=== PATIENT | female | born 1945 | race African-American/Black ===

== ENCOUNTER 2017-07-28 16:02 | Outpatient (CLI) | payer MEDICARE | END 2017-07-28 16:03 | disposition home or self-care (01) | LOC: BICULT 16:02 | PROVIDERS: ATTEND Internal Medicine | DX: N28.1 Cyst of kidney, acquired (principal) | CPT/HCPCS: 76770 ==

== ENCOUNTER 2017-09-21 16:02 | Emergency (ER) | payer MEDICARE, MEDICAID ==
[2017-09-21 16:23] LABS: #Lymphocytes 1.2 thou/uL (1.20-3.40); #Monocytes 0.5 thou/uL (0.11-0.59); #Neutrophils 1.9 thou/uL (1.40-6.50); %Basophils 1.3 % (0.0-1.0); %Eosinophils 0.6 % (0.0-10.0); %Lymphocytes 33.4 % (21.0-51.0); %Monocytes 12.8 % (0.0-10.0); %Neutrophils 51.9 % (42.0-75.0); Hemoglobin 14.1 g/dL (12.0-16.0); Mean Corpuscular HGB CONC 33.3 g/dL (32.0-36.0); Mean Corpuscular Hemoglobin 29.3 pg (27.0-31.0); Mean Corpuscular Volume 88.2 fl (81.0-99.0); Platelet Count 220 thou/uL (130-400); RBC Distribution Width 12.1 % (11.5-14.5); Red Blood Cell (RBC) Count 4.82 mill/uL (4.20-5.40); White Blood Cell (WBC) Count 3.7 thou/uL (4.8-10.8)
[2017-09-21 16:44] LABS: ALT (SGPT) 20 U/L (8-55); AST (SGOT) 22 U/L (5-34); Albumin 3.8 g/dL (3.4-4.8); Alkaline Phosphatase 114 U/L (40-150); Anion Gap 13 mmol/L (10-20); BUN (Urea Nitrogen) 19 mg/dL (9.8-20.1); Bilirubin, Total 0.4 mg/dL (0.2-1.2); Calc. Creatinine Clearance 0 mL/min (70-130); Calcium 10.2 mg/dL (7.8-10.44); Carbon Dioxide 24 mmol/L (23-31); Chloride 106 mmol/L (98-107); Estimated GFR-MDRD 70; Globulin 3.3 g/dL (2.4-3.5); Glucose 75 mg/dL (83-110); Protein, Total 7.1 g/dL (6.0-8.3); Sodium 139 mmol/L (136-145)
--- NOTE | 2017-09-21 17:00 | RAD ---
SINGLE VIEW OF THE CHEST: 09/21/17 COMPARISON: 09/06/16 HISTORY: Back pain since yesterday. FINDINGS: Single view of the chest shows a normal sized cardiomediastinal silhouette. There are multiple small calcified granulomas scattered throughout the lungs. There is no evidence of consolidation or pleural effusion. The bones are unremarkable. IMPRESSION: No evidence of acute cardiopulmonary disease. POS: [facility]
[2017-09-21 17:30] LABS: INR-International Normal Ratio 2.5; PTT 36.8 SEC (22.9-36.1); Prothrombin Time 27.7 SEC (12.0-14.7)
[2017-09-21 17:42] LABS: CKMB 1.4 ng/mL (0-6.6); Troponin I Less than 0.010 ng/mL (< 0.028)
[2017-09-21 17:47] LABS: Bilirubin Negative (Negative); Blood, Urine Negative (Negative); Clarity CLEAR (Clear); Glucose, Urine (Dipstick) Negative (Negative); Leukocyte Moderate (Negative); Nitrite Negative (Negative); Protein, Urine (Dipstick) Negative (Neg-Trace); Specific Gravity, Urine 1.028 (1.002-1.036)
[2017-09-21 17:49] LABS: Bacteria/HPF None Seen HPF (None Seen); Hyaline Casts/LPF 0-3 HYALINE CAST LPF (0-3 Hyaline); Pathc Cast-AUWi Flag 0.29 (0-2.49); RBC/HPF 0-3 HPF (0-3); Squamous Epithelial 0-3 HPF (0-3)
[2017-09-21] MEDS ORDERED: cefTRIAXone\\ROCEPHIN 2 GM VIAL ONE (18:09)
== END 2017-09-21 18:50 | disposition home or self-care (01) ==
LOC: ERS 16:02
DX: N12 Tubulo-interstitial nephritis, not specified as acute or chronic (principal); E78.5 Hyperlipidemia, unspecified; I10 Essential (primary) hypertension; F41.9 Anxiety disorder, unspecified; F32.9 Major depressive disorder, single episode, unspecified; Z86.711 Personal history of pulmonary embolism; Z79.899 Other long term (current) drug therapy; Z79.891 Long term (current) use of opiate analgesic
CPT/HCPCS: 71045; 80053; 81003; 81015; 82553; 83880; 84484; 85025; 85610; 85730; 87086; 93005; 96365; 96375; J0696; J2270

== ENCOUNTER 2017-09-25 13:33 | Outpatient (CLI) | payer MEDICARE | END 2017-09-25 13:34 | disposition home or self-care (01) | LOC: BICMAMMO 13:33 | PROVIDERS: ATTEND Internal Medicine | DX: Z12.31 Encounter for screening mammogram for malignant neoplasm of breast (principal) | CPT/HCPCS: 77063; 77067 ==

== ENCOUNTER 2018-02-07 07:47 | Emergency (ER) | payer MEDICARE, MEDICAID ==
[2018-02-07] MEDS ORDERED: traMADol HCl 50 MG TAB ONE (08:23)
--- NOTE | 2018-02-07 09:02 | RAD ---
THREE VIEWS RIGHT SHOULDER: Comparison: None. History: Right shoulder and arm pain. FINDINGS: Three views of the right shoulder shows no evidence of acute fracture or dislocation. No significant degenerative changes are seen. The visualized right thorax is unremarkable. IMPRESSION: Unremarkable exam. POS: [facility]
--- NOTE | 2018-02-10 23:07 | EKG ---
Test Reason : Blood Pressure : / mmHG Vent. Rate : 071 BPM Atrial Rate : 071 BPM P-R Int : 162 ms QRS Dur : 134 ms QT Int : 474 ms P-R-T Axes : 046 -65 002 degrees QTc Int : 515 ms Normal sinus rhythm Possible Left atrial enlargement Right bundle branch block Left anterior fascicular block Bifascicular block Abnormal ECG Confirmed by TEJ ANNE ([id number]), image editor BEBETO MYERS ([id number]) on 02/10/2018 11:07:14 PM Referred By: Confirmed By:TEJ ANNE
== END 2018-02-07 08:57 | disposition home or self-care (01) ==
LOC: ERS 07:47
DX: M75.51 Bursitis of right shoulder (principal); I10 Essential (primary) hypertension; K21.9 Gastro-esophageal reflux disease without esophagitis; E78.5 Hyperlipidemia, unspecified; M06.9 Rheumatoid arthritis, unspecified; F32.9 Major depressive disorder, single episode, unspecified; F41.9 Anxiety disorder, unspecified; Z87.891 Personal history of nicotine dependence; Z86.711 Personal history of pulmonary embolism; Z79.899 Other long term (current) drug therapy; Z79.01 Long term (current) use of anticoagulants
CPT/HCPCS: 93005

== ENCOUNTER 2018-07-19 17:44 | Emergency (ER) | payer MEDICARE, MEDICAID ==
--- NOTE | 2018-07-19 19:36 | RAD ---
LEFT ANKLE THREE VIEWS: 07/19/18 HISTORY: Injury left ankle pain. FINDINGS/IMPRESSION: There is a mildly displaced oblique fracture involving the distal fibula with adjacent soft tissue sw elling. POS: [facility]
[2018-07-19] MEDS ORDERED: HYDROcodone/Acetaminophen 5/325 mg Tablet ONE (19:49)
[2018-07-19] MEDS ORDERED: Acetaminophen 500 MG TAB ONE (19:52)
== END 2018-07-19 20:34 | disposition home or self-care (01) ==
LOC: ERS 17:44
DX: S82.832A Other fracture of upper and lower end of left fibula, initial encounter for closed fracture (principal); E78.5 Hyperlipidemia, unspecified; F32.9 Major depressive disorder, single episode, unspecified; I10 Essential (primary) hypertension; K21.9 Gastro-esophageal reflux disease without esophagitis; M06.9 Rheumatoid arthritis, unspecified; Z87.891 Personal history of nicotine dependence; Z86.711 Personal history of pulmonary embolism; W01.0XXA Fall on same level from slipping, tripping and stumbling without subsequent striking against object, initial encounter

== ENCOUNTER 2018-09-27 09:16 | Outpatient (CLI) | payer MEDICARE, MEDICAID ==
--- NOTE | 2018-09-27 13:49 | MMO ---
Bilateral MAMMO Bilat Screen [facility]. CLINICAL HISTORY: Patient is 73 years old and is seen for screening. The patient has no family history of breast cancer. The patient has no personal history of cancer. VIEWS: The views performed were: bilateral craniocaudal with tomosynthesis and bilateral mediolateral oblique with tomosynthesis. FILMS COMPARED: The present examination has been compared to prior imaging studies performed at [facility] on 09/17/2014, 09/21/2015, 09/21/2016 and 09/25/2017. MAMMOGRAM FINDINGS: There are scattered fibroglandular densities. There are no suspicious masses, suspicious calcifications, or new areas of architectural distortion. IMPRESSION: THERE IS NO MAMMOGRAPHIC EVIDENCE OF MALIGNANCY. A ROUTINE FOLLOW-UP MAMMOGRAM IN 1 YEAR IS RECOMMENDED. THE RESULTS OF THIS EXAM WERE SENT TO THE PATIENT. ACR BI-RADS Category 1 - Negative MAMMOGRAPHY NOTE: 1. A negative mammogram report should not delay a biopsy if a dominant of clinically suspicious mass is present. 2. Approximately 10% to 15% of breast cancers are not detected by mammography. 3. Adenosis and dense breasts may obscure an underlying neoplasm.
== END 2018-09-27 09:17 | disposition home or self-care (01) ==
LOC: BICMAMMO 09:16
PROVIDERS: ATTEND Internal Medicine
DX: Z12.31 Encounter for screening mammogram for malignant neoplasm of breast (principal)
CPT/HCPCS: 77063; 77067

== ENCOUNTER 2018-10-05 09:29 | Outpatient (CLI) | payer MEDICARE, MEDICAID ==
--- NOTE | 2018-10-05 10:30 | BD ---
DEXA BONE DENSITY STUDY: Date: 10/05/18 HISTORY: 73-year-old postmenopausal female for screening for osteoporosis. COMPARISON: None. FINDINGS: Lumbar Spine: BMD (g/cm2) L1 0.945 T-Score: -0.4 L2 1.005 T-Score: -0.2 L3 1.080 T-Score: 0.0 L4 1.079 T-Score: 0.2 L1-L4 1.031 T-Score: -0.1 Femoral Neck: 0.700 T-Score: -1.3 Total Femur: 0.692 T-Score: -2.0 IMPRESSION: Osteopenia. This patient has a 10 year WHO fracture risk of a major osteoporotic fracture of 6.2% and a hip fracture of 1.1%. POS: [facility]
== END 2018-10-05 09:30 | disposition home or self-care (01) ==
LOC: BICMAMMO 09:29
PROVIDERS: ATTEND Internal Medicine
DX: Z13.820 Encounter for screening for osteoporosis (principal); Z78.0 Asymptomatic menopausal state; M85.89 Other specified disorders of bone density and structure, multiple sites
CPT/HCPCS: 77080

== ENCOUNTER 2019-02-23 14:39 | Emergency (ER) | payer MEDICARE, MEDICAID | END 2019-02-23 15:09 | disposition home or self-care (01) | LOC: ERS 14:39 | DX: S16.1XXA Strain of muscle, fascia and tendon at neck level, initial encounter (principal); E78.5 Hyperlipidemia, unspecified; E78.00 Pure hypercholesterolemia, unspecified; I10 Essential (primary) hypertension; K21.9 Gastro-esophageal reflux disease without esophagitis; M06.9 Rheumatoid arthritis, unspecified; Z86.711 Personal history of pulmonary embolism; F32.9 Major depressive disorder, single episode, unspecified; Z87.891 Personal history of nicotine dependence; Z79.01 Long term (current) use of anticoagulants; Z79.899 Other long term (current) drug therapy; X50.9XXA Other and unspecified overexertion or strenuous movements or postures, initial encounter | CPT/HCPCS: 99283 ==

== ENCOUNTER 2019-04-22 08:06 | Outpatient (CLI) | payer MEDICARE, MEDICAID ==
--- NOTE | 2019-04-22 08:21 | RAD ---
2 view chest: [04/22/2019] Comparison:10/14/2014 HISTORY: Shortness of breath FINDINGS: Increased linear interstitial density noted with pulmonary hyperinflation. Findings suggest COPD in the proper clinical setting. No pneumothorax or pleural fluid. No focal consolidation or alveolar edema. Bilateral pulmonary parenchymal granulomata are again noted. Mild atherosclerotic gerald cification of the aortic arch. IMPRESSION: Interstitial prominence and pulmonary hyperinflation suggests COPD in the proper clinical setting. Evidence of prior granulomatous disease. No acute findings.
== END 2019-04-22 08:07 | disposition home or self-care (01) ==
LOC: BICRAD 08:06
PROVIDERS: ATTEND Internal Medicine
DX: I10 Essential (primary) hypertension (principal); J98.4 Other disorders of lung
CPT/HCPCS: 71046

== ENCOUNTER 2019-05-10 08:03 | Emergency (ER) | payer MEDICARE, MEDICAID ==
[2019-05-10 08:38] LABS: Hemoglobin 14.1 g/dL (12.0-16.0); Mean Corpuscular HGB CONC 32.2 g/dL (32.0-36.0); Mean Corpuscular Hemoglobin 28.1 pg (27.0-31.0); Mean Corpuscular Volume 87.2 fL (78.0-98.0); Platelet Count 208 thou/uL (130-400); RBC Distribution Width 14.9 % (11.5-14.5); Red Blood Cell (RBC) Count 5.03 mill/uL (4.20-5.40); White Blood Cell (WBC) Count 3.2 thou/uL (4.8-10.8)
[2019-05-10 08:54] LABS: INR-International Normal Ratio 2.6; PTT 38.4 SEC (22.9-36.1); Prothrombin Time 27.3 SEC (12.0-14.7)
[2019-05-10 08:56] LABS: ALT (SGPT) 11 U/L (8-55); AST (SGOT) 16 U/L (5-34); Albumin 3.5 g/dL (3.4-4.8); Alkaline Phosphatase 144 U/L (40-110); Anion Gap 7 mmol/L (10-20); BUN (Urea Nitrogen) 11 mg/dL (9.8-20.1); Bilirubin, Total 0.4 mg/dL (0.2-1.2); Calc. Creatinine Clearance 0 mL/min (70-130); Calcium 9.8 mg/dL (7.8-10.44); Carbon Dioxide 25 mmol/L (23-31); Chloride 110 mmol/L (98-107); Estimated GFR-MDRD 69; Glucose 147 mg/dL (83-110); Lipase 48 U/L (8-78); Potassium 3.4 mmol/L (3.5-5.1); Protein, Total 6.5 g/dL (6.0-8.3); Sodium 139 mmol/L (136-145)
[2019-05-10 09:07] LABS: MDiff Complete? YES; Platelet Morphology Comment Appears Adequate; RBC Morphology Normal
[2019-05-10 09:34] LABS: Bacteria/HPF None Seen HPF (None Seen); Bilirubin Negative (Negative); Blood, Urine Negative (Negative); Clarity Clear (Clear); Glucose, Urine (Dipstick) Normal (Negative); Leukocyte 250 Leu/uL (Negative); Nitrite Negative (Negative); Protein, Urine (Dipstick) Negative (Neg-Trace); RBC/HPF 0-3 HPF (0-3); Squamous Epithelial 0-3 HPF (0-3); Urobilinogen Normal mg/dL (Less than 2)
[2019-05-10 09:37] LABS: Band 1 % (5-11); Eosinophils 2 % (0-10); Lymphocytes 35 % (21-51); Monocytes 16 % (0-10); Neutrophil 46 % (42-75)
--- NOTE | 2019-05-10 11:30 | CT ---
CT ABDOMEN AND PELVIS PERFORMED WITH IV CONTRAST ENHANCEMENT: Date: 05/10/2019 HISTORY: Periumbilical pain. Diarrhea. FINDINGS: The lung bases are clear of any infiltrative process. The liver, spleen, and pancreas regions appear unremarkable. Gallbladder is not distended. Right and left adrenal glands are normal. Hypodensities involving the upper pole of the right kidney and lower pole of the left kidney appear to represent cysts. There is no significant periaortic or me senteric adenopathy. CT of pelvis was performed with contrast. The appendix is normal. Some minimal diverticulosis of the descending and sigmoid colon. No evidence for diverticulitis. IMPRESSION: 1. Bilateral renal cysts. 2. Colonic diverticulosis. 3. Normal appendix. POS: [facility]
[2019-05-10] MEDS ORDERED: Iopamidol-370 76% 500 ML 1 ML ONE (14:28)
== END 2019-05-10 12:27 | disposition home or self-care (01) ==
LOC: ERS 08:03
DX: N39.0 Urinary tract infection, site not specified (principal); R10.816 Epigastric abdominal tenderness; R19.7 Diarrhea, unspecified; E78.5 Hyperlipidemia, unspecified; E78.00 Pure hypercholesterolemia, unspecified; I10 Essential (primary) hypertension; K21.9 Gastro-esophageal reflux disease without esophagitis; M06.9 Rheumatoid arthritis, unspecified; F32.9 Major depressive disorder, single episode, unspecified; F41.9 Anxiety disorder, unspecified; Z87.891 Personal history of nicotine dependence; Z86.711 Personal history of pulmonary embolism; Z79.899 Other long term (current) drug therapy; Z79.01 Long term (current) use of anticoagulants
CPT/HCPCS: 36415; 74177; 80053; 81003; 81015; 83690; 85025; 85610; 85730; 86850; 86900; 86901; 87086; 93005; Q9967

== ENCOUNTER 2019-09-30 07:55 | Outpatient (CLI) | payer MEDICARE, MEDICAID ==
--- NOTE | 2019-09-30 08:22 | MMO ---
Bilateral MAMMO Bilat Screen [facility]. CLINICAL HISTORY: Patient is 74 years old and is seen for screening. The patient has no family history of breast cancer. The patient has no personal history of cancer. VIEWS: The views performed were: bilateral craniocaudal with tomosynthesis; bilateral mediolateral oblique with tomosynthesis; and bilateral exaggerated craniocaudal. FILMS COMPARED: The present examination has been compared to prior imaging studies performed at [facility] on 09/21/2015, 09/21/2016, 09/25/2017 and 09/27/2018. This study has been interpreted with the assistance of computer-aided detection. MAMMOGRAM FINDINGS: There are scattered fibroglandular densities. There are no suspicious masses, suspicious calcifications, or new areas of architectural distortion. IMPRESSION: THERE IS NO MAMMOGRAPHIC EVIDENCE OF MALIGNANCY. A ROUTINE FOLLOW-UP MAMMOGRAM IN 1 YEAR IS RECOMMENDED. THE RESULTS OF THIS EXAM WERE SENT TO THE PATIENT. ACR BI-RADS Category 1 - Negative MAMMOGRAPHY NOTE: 1. A negative mammogram report should not delay a biopsy if a dominant of clinically suspicious mass is present. 2. Approximately 10% to 15% of breast cancers are not detected by mammography. 3. Adenosis and dense breasts may obscure an underlying neoplasm. Reported by: SHANITA ZAVALA MD Electonically Signed: [id number]
== END 2019-09-30 07:56 | disposition home or self-care (01) ==
LOC: BICMAMMO 07:55
PROVIDERS: ATTEND Internal Medicine
DX: Z12.31 Encounter for screening mammogram for malignant neoplasm of breast (principal)
CPT/HCPCS: 77063; 77067

== ENCOUNTER 2020-04-10 08:31 | Emergency (ER) | payer MEDICARE, MEDICAID ==
--- NOTE | 2020-04-10 09:11 | RAD ---
Exam: Right hip 2 views: HISTORY: Right hip pain, history of rheumatoid arthritis COMPARISON: None FINDINGS: Bony demineralization. Mild right hip joint space loss without significant hypertrophic osteophytosis . No evidence for fracture, dislocation, or other significant acute osseous abnormality. IMPRESSION: Mild nonspecific right hip joint space loss.
[2020-04-10] MEDS ORDERED: Ibuprofen 800 MG TAB ONE (09:49)
== END 2020-04-10 09:55 | disposition home or self-care (01) ==
LOC: ERS 08:31
DX: M25.551 Pain in right hip (principal); M06.9 Rheumatoid arthritis, unspecified; E78.5 Hyperlipidemia, unspecified; E78.00 Pure hypercholesterolemia, unspecified; I10 Essential (primary) hypertension; K21.9 Gastro-esophageal reflux disease without esophagitis; Z79.01 Long term (current) use of anticoagulants

== ENCOUNTER 2020-04-23 14:11 | Outpatient (CLI) | payer MEDICARE, MEDICAID ==
--- NOTE | 2020-04-23 15:13 | ULT ---
Exam: Bilateral renal ultrasound HISTORY: Renal cyst COMPARISON: 05/16/2016 Correlation: Abdomen and pelvic CT 05/09/2019 FINDINGS: Right kidney: Normal cortical echotexture. No hydronephrosis. Redemonstration of exophytic cyst emana ting from the upper pole of the left kidney, measuring 3.0 x 2.7 x 2.7 cm Right kidney measurements: 9.5 x 4.9 x 5.1 cm. Left kidney: Normal cortical echotexture. No hydronephrosis. Isoechoic focus in the lower pole left k idney measures 1.6 x 1.6 x 1.2 cm Left kidney measurements 9.4 x 4.6 x 4.8 cm. Urinary bladder: Inadequate distention. Limited evaluation. IMPRESSION: 1. Left and right renal cysts, better demonstrated on a abdomen pelvis CT from 05/10/2019.
== END 2020-04-23 14:12 | disposition home or self-care (01) ==
LOC: BICULT 14:11
PROVIDERS: ATTEND Internal Medicine
DX: N28.1 Cyst of kidney, acquired (principal)
CPT/HCPCS: 76770

== ENCOUNTER 2020-06-10 08:29 | Outpatient (CLI) | payer MEDICARE, MEDICAID ==
--- NOTE | 2020-06-10 09:39 | CT ---
CT OF THE ABDOMEN WITH AND WITHOUT IV CONTRAST INDICATION: Renal cysts COMPARISON: CT the abdomen and pelvis dated May 10, 2019 FINDINGS: ABDOMEN: Lung bases: There are calcified granuloma in the right and left lower lobe Liver: There is calcified granuloma in the right hepatic lobe. Gallbladder: Normal appearing. Pancreas: Normal. Adrenal glands: Normal. Spleen: Calcified granuloma the spleen Kidneys and ureters: There is a stable 3.2 cm cyst involving the superior pole of the right kidney. T here is a stable 1.4 cm cyst involving inferior pole of the left kidney. No suspicious solid renal lesion is evident. No hydronephrosis is demonstrated. Bowel:Normal appearing. Vasculature: There are moderate vascular calcifications seen involving the visualized vasculature. Lymph nodes:No lymphadenopathy. Free fluid in abdomen:No free fluid is evident. Osseous structures: No acute osseous abnormality. No destructive osteolytic or osteoblastic lesion i s identified. There is scattered degenerative and osteoarthritic changes. There is stable grade 1 anterolisthesis of L4 and L5. Soft tissues:Normal. IMPRESSION: 1. Stable bilateral renal cysts. 2. Findings of prior granulomatous disease.
[2020-06-10] MEDS ORDERED: Iopamidol-370 76% 500 ML 1 ML ONE (13:46)
== END 2020-06-10 08:30 | disposition home or self-care (01) ==
LOC: BICCT 08:29
PROVIDERS: ATTEND Urology
DX: N28.1 Cyst of kidney, acquired (principal)
CPT/HCPCS: 74170; 82565; Q9967

== ENCOUNTER 2020-08-01 10:52 | Emergency (ER) | payer MEDICARE, MEDICAID ==
[2020-08-01] MEDS ORDERED: HYDROcodone/Acetaminophen 10/325 mg Tablet ONE ×2 (11:12→11:17)
== END 2020-08-01 11:44 | disposition home or self-care (01) ==
LOC: ERS 10:52
DX: H60.92 Unspecified otitis externa, left ear (principal); H66.92 Otitis media, unspecified, left ear; E78.5 Hyperlipidemia, unspecified; E78.00 Pure hypercholesterolemia, unspecified; I10 Essential (primary) hypertension; K21.9 Gastro-esophageal reflux disease without esophagitis; M06.9 Rheumatoid arthritis, unspecified; Z87.891 Personal history of nicotine dependence
CPT/HCPCS: 99283

== ENCOUNTER 2020-10-01 08:33 | Outpatient (CLI) | payer MEDICARE, MEDICAID | END 2020-10-01 08:34 | disposition home or self-care (01) | LOC: BICMAMMO 08:33 | PROVIDERS: ATTEND Internal Medicine | DX: Z12.31 Encounter for screening mammogram for malignant neoplasm of breast (principal) | CPT/HCPCS: 77063; 77067 ==

== ENCOUNTER 2021-02-06 10:47 | Emergency (ER) | payer MEDICARE, MEDICAID ==
[2021-02-06 18:57] LABS: SARS-CoV-2 PCR by NAA Not Detected (NotDetected)
== END 2021-02-06 11:50 | disposition home or self-care (01) ==
LOC: ERS 10:47
DX: J02.9 Acute pharyngitis, unspecified (principal); I10 Essential (primary) hypertension; K21.9 Gastro-esophageal reflux disease without esophagitis; Z20.822 Contact with and (suspected) exposure to COVID-19; E78.00 Pure hypercholesterolemia, unspecified; Z86.711 Personal history of pulmonary embolism; Z87.891 Personal history of nicotine dependence; Z79.899 Other long term (current) drug therapy
CPT/HCPCS: 87081; 87430; U0003; U0005; 99283

== ENCOUNTER 2021-02-27 06:46 | Emergency (ER) | payer MEDICARE, MEDICAID ==
[2021-02-27 07:32] LABS: #Lymphocytes 1.4 thou/uL (1.20-3.40); #Monocytes 0.5 thou/uL (0.11-0.59); #Neutrophils 2.1 thou/uL (1.40-6.50); %Basophils 0.8 % (0.0-1.0); %Eosinophils 0.7 % (0.0-10.0); %Lymphocytes 34.8 % (21.0-51.0); %Monocytes 12.2 % (0.0-10.0); %Neutrophils 51.5 % (42.0-75.0); Mean Corpuscular HGB CONC 33.3 g/dL (32.0-36.0); Mean Corpuscular Hemoglobin 27.5 pg (27.0-31.0); Mean Corpuscular Volume 82.7 fL (78.0-98.0); Mean Platelet Volume 8.2 fL (7.4-10.4); Platelet Count 245 thou/uL (130-400); Red Blood Cell (RBC) Count 4.72 mill/uL (4.20-5.40); White Blood Cell (WBC) Count 4.1 thou/uL (4.8-10.8)
[2021-02-27 07:43] LABS: INR-International Normal Ratio 1.5; Prothrombin Time 17.9 sec (12.0-14.7)
[2021-02-27 07:45] LABS: PTT 30.4 sec (22.9-36.1)
[2021-02-27 07:56] LABS: Bilirubin Negative (Negative); Blood, Urine Negative (Negative); Clarity Clear (Clear); Glucose, Urine (Dipstick) Normal (Negative); Ketone, Urine Negative (Negative); Leukocyte Negative Leu/uL (Negative); Nitrite Negative (Negative); Protein, Urine (Dipstick) Negative (Neg-Trace); Urobilinogen Normal mg/dL (Less than 2)
[2021-02-27 09:10] LABS: ALT (SGPT) 12 U/L (8-55); AST (SGOT) 18 U/L (5-34); Albumin 3.4 g/dL (3.4-4.8); Alkaline Phosphatase 83 U/L (40-110); Anion Gap 11 mmol/L (10-20); BUN (Urea Nitrogen) 17 mg/dL (9.8-20.1); Bilirubin, Total 0.4 mg/dL (0.2-1.2); Calc. Creatinine Clearance 0 mL/min (70-130); Calcium 10.6 mg/dL (7.8-10.44); Carbon Dioxide 23 mmol/L (23-31); Chloride 109 mmol/L (98-107); Globulin 4.1 g/dL (2.4-3.5); Glucose 86 mg/dL (83-110); Lipase 42 U/L (8-78); Potassium 3.9 mmol/L (3.5-5.1); Protein, Total 7.5 g/dL (5.8-8.1); Sodium 139 mmol/L (136-145)
[2021-02-27] MEDS ORDERED: Iopamidol-370 76% 500 ML 1 ML ONE (13:02)
== END 2021-02-27 09:55 | disposition home or self-care (01) ==
LOC: ERS 06:46
DX: R10.33 Periumbilical pain (principal); R19.5 Other fecal abnormalities; Z51.81 Encounter for therapeutic drug level monitoring; I10 Essential (primary) hypertension; Z87.891 Personal history of nicotine dependence
CPT/HCPCS: 36415; 74177; 80053; 81003; 83690; 84484; 85025; 85610; 85730; 93005; Q9967

== ENCOUNTER 2021-03-22 07:28 | Outpatient (CLI) | payer MEDICARE, MEDICAID | END 2021-03-22 07:29 | disposition home or self-care (01) | LOC: CT 07:28 | PROVIDERS: ATTEND Physician Assistant Medical | DX: R10.13 Epigastric pain (principal); R93.3 Abnormal findings on diagnostic imaging of other parts of digestive tract | CPT/HCPCS: 74177 ==

== ENCOUNTER 2021-04-15 10:18 | Emergency (ER) | payer MEDICARE, MEDICAID ==
[2021-04-15 11:04] LABS: #Eosinphils 0.1 thou/uL (0.0-0.7); #Lymphocytes 1.4 thou/uL (1.20-3.40); #Monocytes 0.4 thou/uL (0.11-0.59); #Neutrophils 2.1 thou/uL (1.40-6.50); %Basophils 1.2 % (0.0-1.0); %Eosinophils 1.5 % (0.0-10.0); %Lymphocytes 34.9 % (21.0-51.0); %Monocytes 10.1 % (0.0-10.0); %Neutrophils 52.3 % (42.0-75.0); Hemoglobin 13.5 g/dL (12.0-16.0); Mean Corpuscular HGB CONC 32.8 g/dL (32.0-36.0); Mean Corpuscular Hemoglobin 27.3 pg (27.0-31.0); Mean Corpuscular Volume 83.4 fL (78.0-98.0); Mean Platelet Volume 8.2 fL (7.4-10.4); Platelet Count 236 thou/uL (130-400); RBC Distribution Width 14.4 % (11.5-14.5); Red Blood Cell (RBC) Count 4.95 mill/uL (4.20-5.40)
[2021-04-15 11:27] LABS: ALT (SGPT) 9 U/L (8-55); AST (SGOT) 17 U/L (5-34); Albumin 3.7 g/dL (3.4-4.8); Alkaline Phosphatase 97 U/L (40-110); Anion Gap 11 mmol/L (10-20); BUN (Urea Nitrogen) 23 mg/dL (9.8-20.1); Bilirubin, Total 0.5 mg/dL (0.2-1.2); Calc. Creatinine Clearance 0 mL/min (70-130); Calcium 10.6 mg/dL (7.8-10.44); Carbon Dioxide 23 mmol/L (23-31); Chloride 108 mmol/L (98-107); Globulin 3.8 g/dL (2.4-3.5); Glucose 89 mg/dL (83-110); Lipase 46 U/L (8-78); Potassium 3.9 mmol/L (3.5-5.1); Protein, Total 7.5 g/dL (5.8-8.1); Sodium 138 mmol/L (136-145)
[2021-04-15 12:10] LABS: Prothrombin Time 22.8 sec (12.0-14.7)
[2021-04-15] MEDS ORDERED: Nitroglycerin 2% Ointment 1 INCH/1 GM Packet ONE (12:14)
[2021-04-15] MEDS ORDERED: Ondansetron PF 4 MG/2 ML Vial IVP PRN (13:15)
[2021-04-15] MEDS ORDERED: Ondansetron ODT 4 MG TAB SL PRN (13:15)
[2021-04-15 14:10] LABS: SARS-CoV-2 NAA Rapid Test Not Detected (NotDetected)
[2021-04-15] MEDS ORDERED: Spironolactone 25 MG TAB PO SCH (15:30)
[2021-04-15 17:24] LABS: Troponin I 0.012 ng/mL (< 0.028)
== END 2021-04-15 17:40 | disposition home or self-care (01) ==
LOC: ERS 10:18
DX: R07.9 Chest pain, unspecified (principal); E78.5 Hyperlipidemia, unspecified; I10 Essential (primary) hypertension; K21.9 Gastro-esophageal reflux disease without esophagitis; Z86.711 Personal history of pulmonary embolism; Z87.891 Personal history of nicotine dependence; Z79.899 Other long term (current) drug therapy; Z20.822 Contact with and (suspected) exposure to COVID-19
CPT/HCPCS: 71045; 80053; 83690; 84484 ×2; 85025; 85610; 85730; 93005; 94760; 99285; U0002; 36415

== ENCOUNTER 2021-10-04 10:57 | Outpatient (CLI) | payer MEDICARE, MEDICAID | END 2021-10-04 10:58 | disposition home or self-care (01) | LOC: BICMAMMO 10:57 | PROVIDERS: ATTEND Internal Medicine | DX: Z12.31 Encounter for screening mammogram for malignant neoplasm of breast (principal) | CPT/HCPCS: 77063; 77067 ==

== ENCOUNTER 2021-10-30 13:08 | Emergency (ER) | payer MEDICARE, MEDICAID ==
[2021-10-30 13:31] LABS: #Basophils 0.1 thou/uL (0.0-0.2); #Monocytes 0.6 thou/uL (0.11-0.59); #Neutrophils 2.4 thou/uL (1.40-6.50); %Eosinophils 0.7 % (0.0-10.0); %Lymphocytes 39.3 % (21.0-51.0); %Monocytes 10.9 % (0.0-10.0); Hemoglobin 14.2 g/dL (12.0-16.0); Mean Corpuscular HGB CONC 32.6 g/dL (32.0-36.0); Mean Corpuscular Hemoglobin 28.1 pg (27.0-31.0); Mean Corpuscular Volume 86.1 fL (78.0-98.0); Mean Platelet Volume 8.9 fL (7.4-10.4); Platelet Count 203 thou/uL (130-400); RBC Distribution Width 13.1 % (11.5-14.5); Red Blood Cell (RBC) Count 5.04 mill/uL (4.20-5.40); White Blood Cell (WBC) Count 5.1 thou/uL (4.8-10.8)
[2021-10-30] MEDS ORDERED: Meclizine HCl 25 MG TAB ONE ×2 (13:57→13:59)
[2021-10-30 14:05] LABS: ALT (SGPT) 9 U/L (8-55); AST (SGOT) 16 U/L (5-34); Albumin 3.9 g/dL (3.4-4.8); Alkaline Phosphatase 98 U/L (40-110); Anion Gap 13 mmol/L (10-20); BUN (Urea Nitrogen) 21 mg/dL (9.8-20.1); Bilirubin, Total 0.5 mg/dL (0.2-1.2); Calc. Creatinine Clearance 0 mL/min (70-130); Calcium 11.1 mg/dL (7.8-10.44); Carbon Dioxide 25 mmol/L (23-31); Chloride 107 mmol/L (98-107); Estimated GFR 56; Globulin 3.6 g/dL (2.4-3.5); Glucose 73 mg/dL (83-110); Potassium 3.8 mmol/L (3.5-5.1); Protein, Total 7.5 g/dL (5.8-8.1); Sodium 141 mmol/L (136-145)
== END 2021-10-30 15:17 | disposition home or self-care (01) ==
LOC: ERS 13:08
DX: R42 Dizziness and giddiness (principal); E78.5 Hyperlipidemia, unspecified; I10 Essential (primary) hypertension; K21.9 Gastro-esophageal reflux disease without esophagitis; Z87.891 Personal history of nicotine dependence; Z79.899 Other long term (current) drug therapy
CPT/HCPCS: 70450; 80053; 85025; 93005; 96360

== ENCOUNTER 2022-05-07 18:17 | Emergency (ER) | payer MEDICARE, OTHER | END 2022-05-07 19:29 | disposition home or self-care (01) | LOC: ERS 18:17 | DX: M79.622 Pain in left upper arm (principal); I10 Essential (primary) hypertension; E78.5 Hyperlipidemia, unspecified; K21.9 Gastro-esophageal reflux disease without esophagitis; Z87.891 Personal history of nicotine dependence | CPT/HCPCS: 99283 ==

== ENCOUNTER 2022-08-03 11:22 | Emergency (ER) | payer MEDICARE, OTHER ==
[2022-08-03 15:02] LABS: #Eosinphils 0.1 thou/uL (0.0-0.7); #Lymphocytes 1.6 thou/uL (1.20-3.40); #Monocytes 0.5 thou/uL (0.11-0.59); #Neutrophils 2.5 thou/uL (1.40-6.50); %Basophils 0.7 % (0.0-1.0); %Eosinophils 1.5 % (0.0-10.0); %Lymphocytes 34.9 % (21.0-51.0); %Monocytes 9.7 % (0.0-10.0); %Neutrophils 53.1 % (42.0-75.0); Hemoglobin 14.3 g/dL (12.0-16.0); Mean Corpuscular HGB CONC 32.9 g/dL (32.0-36.0); Mean Corpuscular Hemoglobin 29.3 pg (27.0-31.0); Mean Corpuscular Volume 89.3 fl (78.0-98.0); Mean Platelet Volume 8.3 fL (7.4-10.4); Platelet Count 228 10x3/uL (130-400); RBC Distribution Width 14.1 % (11.5-14.5); Red Blood Cell (RBC) Count 4.88 mill/uL (4.20-5.40); White Blood Cell (WBC) Count 4.7 10x3/uL (4.8-10.8)
[2022-08-03 15:47] LABS: ALT (SGPT) 10 U/L (8-55); AST (SGOT) 16 U/L (5-34); Albumin 4.2 g/dL (3.4-4.8); Alkaline Phosphatase 115 U/L (40-110); Anion Gap 13 mmol/L (10-20); BUN (Urea Nitrogen) 23 mg/dL (9.8-20.1); Bilirubin, Total 0.4 mg/dL (0.2-1.2); Calc. Creatinine Clearance 0 mL/min (70-130); Calcium 10.9 mg/dL (7.8-10.44); Carbon Dioxide 22 mmol/L (23-31); Chloride 110 mmol/L (98-107); Estimated GFR 60; Globulin 3.3 g/dL (2.4-3.5); Glucose 93 mg/dL (83-110); Potassium 3.9 mmol/L (3.5-5.1); Protein, Total 7.5 g/dL (5.8-8.1); Sodium 141 mmol/L (136-145)
== END 2022-08-03 16:48 | disposition home or self-care (01) ==
LOC: ERS 11:22
DX: R42 Dizziness and giddiness (principal); I49.1 Atrial premature depolarization; I10 Essential (primary) hypertension; E78.5 Hyperlipidemia, unspecified; Z87.891 Personal history of nicotine dependence; Z79.899 Other long term (current) drug therapy; Z79.01 Long term (current) use of anticoagulants
CPT/HCPCS: 36415; 80053; 84484; 85025; 93005

== ENCOUNTER 2023-03-24 13:51 | Emergency (ER) | payer MEDICARE, MEDICAID ==
[~2023-03-24 13:51] MED LIST: Iopamidol-370 76% 500 ML MDV (1 ML CHARGE) ONE
[2023-03-24] MEDS ORDERED: Mag-Al 1200 mg/1200 mg/30 ML UDCUP ONE (14:59)
[2023-03-24 15:28] LABS: Delete Auto Diff?? YES; Hematocrit 41.2 % (36.0-47.0); Hemoglobin 13.6 g/dL (12.0-16.0); Manual Diff?? YES; Mean Corpuscular Hemoglobin 28.8 pg (27.0-31.0); Mean Corpuscular Volume 87.3 fl (78.0-98.0); Mean Platelet Volume 10.6 fL (7.4-10.4); Platelet Count 206 10x3/uL (130-400); RBC Distribution Width 14.6 % (11.5-14.5); Red Blood Cell (RBC) Count 4.72 mill/uL (4.20-5.40); White Blood Cell (WBC) Count 3.1 10x3/uL (4.8-10.8)
[2023-03-24 15:52] LABS: ALT (SGPT) 9 U/L (8-55); AST (SGOT) 14 U/L (5-34); Albumin 3.8 g/dL (3.4-4.8); Alkaline Phosphatase 97 U/L (40-110); Anion Gap 11 mmol/L (10-20); BUN (Urea Nitrogen) 13 mg/dL (9.8-20.1); Bilirubin, Total 0.3 mg/dL (0.2-1.2); Calc. Creatinine Clearance 0 mL/min (70-130); Calcium 10.1 mg/dL (7.8-10.44); Carbon Dioxide 24 mmol/L (23-31); Chloride 107 mmol/L (98-107); Estimated GFR 69; Glucose 79 mg/dL (83-110); Lipase 38 U/L (8-78); Potassium 4.1 mmol/L (3.5-5.1); Protein, Total 6.8 g/dL (5.8-8.1); Sodium 138 mmol/L (136-145)
[2023-03-24 15:54] LABS: Troponin I Less than 0.010 ng/mL (< 0.028)
[2023-03-24 15:58] LABS: Bacteria/HPF None Seen HPF (None Seen); Bilirubin Negative (Negative); Blood, Urine Negative (Negative); CAUTI Indications for Culture Pelvic or flank pain; Clarity Clear (Clear); Glucose, Urine (Dipstick) Normal (Negative); Ketone, Urine Negative (Negative); Leukocyte 250 Leu/uL (Negative); Nitrite Negative (Negative); Protein, Urine (Dipstick) Negative (Neg-Trace); RBC/HPF 0-3 HPF (0-3); Specific Gravity, Urine 1.019 (1.002-1.036); Squamous Epithelial 0-3 HPF (0-3); Urobilinogen Normal mg/dL (Less than 2); pH, Urine 5.5 (5.0-9.0)
[2023-03-24 16:00] LABS: CellaVision Operator ID LAB.KB; Eosinophils 1 % (0-10); Lymphocytes 45 % (21-51); Monocytes 14 % (0-10); Neutrophil 32 % (42-75); Ovalocytes SLIGHT = 2-5 cells HPF (0-1); Platelet Adequacy Comment Platelets Normal; Polychromasia SLIGHT = 2-3 cells HPF (0-2); Reactive Lymphocytes 7 % (0-10); Total Cell Count 100
[2023-03-24 16:01] LABS: Urine Culture Reflex Yes Yes
== END 2023-03-24 18:06 | disposition home or self-care (01) ==
LOC: ERS 13:51
DX: K21.9 Gastro-esophageal reflux disease without esophagitis (principal); N39.0 Urinary tract infection, site not specified; I10 Essential (primary) hypertension; Z87.891 Personal history of nicotine dependence
CPT/HCPCS: 36415; 74177; 80053; 81001; 83690; 84484; 85025; 87086; 93005; Q9967

== ENCOUNTER 2023-03-25 09:27 | Emergency (ER) | payer MEDICARE, MEDICAID | END 2023-03-25 11:45 | disposition home or self-care (01) | LOC: ERS 09:27 | DX: L29.9 Pruritus, unspecified (principal); T37.8X5A Adverse effect of other specified systemic anti-infectives and antiparasitics, initial encounter; N39.0 Urinary tract infection, site not specified; I10 Essential (primary) hypertension; Z87.891 Personal history of nicotine dependence | CPT/HCPCS: 99283 ==

== ENCOUNTER 2023-10-09 09:35 | Outpatient (CLI) | payer MEDICARE, OTHER | END 2023-10-09 09:36 | disposition home or self-care (01) | LOC: BICMAMMO 09:35 | PROVIDERS: ATTEND Internal Medicine | DX: Z12.31 Encounter for screening mammogram for malignant neoplasm of breast (principal) | CPT/HCPCS: 77063; 77067 ==

== ENCOUNTER 2024-10-09 09:04 | Outpatient (CLI) | payer OTHER | END 2024-10-09 09:05 | disposition home or self-care (01) | LOC: BICMAMMO 09:04 | PROVIDERS: ATTEND Internal Medicine | DX: Z12.31 Encounter for screening mammogram for malignant neoplasm of breast (principal) | CPT/HCPCS: 77063; 77067 ==